=== PATIENT | female | born 1985 | race Caucasian/White ===

== ENCOUNTER 2022-11-11 18:43 | Emergency (ER) | payer SELFPAY ==
[~2022-11-11] VITALS: Ht 162.6 cm; Wt 95.5 kg
[2022-11-11 18:46] VITALS: TEMP 98.5
[2022-11-11 19:10] LABS: COLLECTION METHOD CLEAN CATCH
[2022-11-11 19:24] LABS: MUCOUS Present (NOT PRESENT); URINE BACTERIA None Seen /hpf (NONE SEEN); URINE RBC 0-2 /hpf (0-2)
[2022-11-11 19:25] LABS: URINE APPEARANCE Hazy (CLEAR/HAZY); URINE BLOOD Negative (NEGATIVE); URINE COLOR Yellow (YELLOW); URINE GLUCOSE Negative (NEGATIVE); URINE KETONE Negative (NEGATIVE); URINE NITRATE Negative (NEGATIVE); URINE PROTEIN(semi-quant) TRACE (NEGATIVE); URINE UROBILINOGEN 0.2 E.U/dL (0.2-1.0)
[2022-11-11 19:28] LABS: BASO # 0.1 K/mm3 (0.0-0.2); BASO % 0.7 % (0.0-2.0); EOS # 0.1 K/mm3 (0.0-0.7); EOS % 0.5 % (0.0-4.0); GRAN # 8.1 K/mm3 (1.4-6.5); GRAN % 65.6 % (42.2-75.2); HEMATOCRIT 38.7 % (37.0-47.0); HEMOGLOBIN 13.2 g/dl (12.5-16.0); LYMPH # 3.4 K/mm3 (1.2-3.4); LYMPH % 27.3 % (20.0-51.0); MEAN CELL VOLUME 91 fl (80.0-100.0); MEAN CORPUSCULAR HEMOGLOBIN 31 pg (27-31); MEAN CORPUSCULAR HGB CONC 34 g/dl (33.0-37.0); MEAN PLATELET VOLUME 9.4 fl (7.4-10.4); MONO # 0.7 K/mm3 (0.1-0.6); MONO % 5.7 % (1.7-9.3); PLATELET COUNT 354 K/mm3 (130-400); RED BLOOD COUNT 4.25 M/mm3 (4.10-5.30); REDCELL DISTRIBUTION WIDTH-CV 12.2 % (11.5-14.5)
[2022-11-11 19:37] LABS: ALBUMIN 4.4 gm/dL (3.5-5.0); BILIRUBIN,TOTAL 0.2 mg/dL (0.2-1.2); CALCIUM 9.4 mg/dL (8.4-10.2); CREATININE, serum 0.8 mg/dL (0.57-1.11); POTASSIUM 3.8 mmol/L (3.5-4.5)
[2022-11-11] MEDS ORDERED: ZOFRAN ODT4 MG PO (21:10)
[2022-11-11] MEDS ORDERED: OMNICEF 300MG300 MG PO (21:10)
[2022-11-11 21:44] VITALS: BP 145/100; PULSE 73
== END 2022-11-11 21:44 | disposition home or self-care (01) ==
LOC: COL.ER 18:43
PROVIDERS: Nurse Practitioner Primary Care
DX: N39.0 Urinary tract infection, site not specified (principal); Z87.891 Personal history of nicotine dependence; Z20.822 Contact with and (suspected) exposure to COVID-19
CPT/HCPCS: J0696; J1885; J2270; J2405; J7120

== ENCOUNTER 2023-10-24 19:26 | Emergency (ER) | payer OTHER ==
[~2023-10-24] VITALS: Ht 162.6 cm; Wt 90.9 kg
[~2023-10-24 19:26] MED LIST: CEPHALEXIN500 M1 PO; FLAGYL500 MG PO; NORCO 325 MG-51 TAB PO; OMNICEF 300MG300 MG PO; ZOFRAN ODT4 MG PO
[2023-10-24 19:33] VITALS: TEMP 98.7
[2023-10-24] MEDS ORDERED: Ketorolac 30 MG/ML VIAL IV ONE (20:45)
[2023-10-24] MEDS ORDERED: Ketorolac 60 MG/2 ML VIAL IM ONE (20:45)
[2023-10-24 20:46] LABS: BASO # 0.1 K/mm3 (0.0-0.2); BASO % 0.8 % (0.0-2.0); EOS # 0.1 K/mm3 (0.0-0.7); EOS % 0.9 % (0.0-4.0); GRAN # 4.3 K/mm3 (1.4-6.5); HEMATOCRIT 38.2 % (37.0-47.0); HEMOGLOBIN 12.9 g/dl (12.5-16.0); LYMPH # 2.6 K/mm3 (1.2-3.4); LYMPH % 34.3 % (20.0-51.0); MEAN CELL VOLUME 93 fl (80.0-100.0); MEAN CORPUSCULAR HEMOGLOBIN 31 pg (27-31); MEAN CORPUSCULAR HGB CONC 34 g/dl (33.0-37.0); MEAN PLATELET VOLUME 9.1 fl (7.4-10.4); MONO # 0.4 K/mm3 (0.1-0.6); MONO % 5.9 % (1.7-9.3); PLATELET COUNT 352 K/mm3 (130-400); RED BLOOD COUNT 4.11 M/mm3 (4.10-5.30)
[2023-10-24 21:09] LABS: BILIRUBIN,TOTAL 0.2 mg/dL (0.2-1.2); CALCIUM 8.9 mg/dL (8.4-10.2); CREATININE, serum 0.69 mg/dL (0.57-1.11); POTASSIUM 3.5 mEq/L (3.5-4.5); TOTAL PROTEIN 7.2 g/dl (6.2-8.1)
[2023-10-24] MEDS ORDERED: MEDROL 4MG DOSPA4 MG PO (21:47)
[2023-10-24] MEDS ORDERED: FLEXERIL 1010 MG/TAB PO (21:47)
[2023-10-24] MEDS ORDERED: Albuterol 90 MCG/PUFF 8 GM MDI IH ONE (22:00)
[2023-10-24] MEDS ORDERED: Cyclobenzaprine 10 MG TAB PO ONE (22:00)
[2023-10-24 22:12] VITALS: BP 145/86; PULSE 96
== END 2023-10-24 22:52 | disposition home or self-care (01) ==
LOC: COL.ER 19:26
PROVIDERS: Nurse Practitioner Family
DX: J45.21 Mild intermittent asthma with (acute) exacerbation (principal); M54.42 Lumbago with sciatica, left side; G89.29 Other chronic pain; Z87.891 Personal history of nicotine dependence
CPT/HCPCS: J1885